=== PATIENT | male | born 1990 | race Caucasian/White ===

== ENCOUNTER 2025-01-12 09:55 | Emergency (ER) | payer MEDICAID ==
[~2025-01-12] VITALS: Ht 175.3 cm; Wt 105.0 kg
[2025-01-12 10:01] VITALS: TEMP 36.9; O2SAT 100
[2025-01-12] MEDS: LIDOCAINE HCL/PF 1% 10 MG/ML 5ML VIAL INFIL ONE (10:45)
[2025-01-12] MEDS: BACITRACIN ZINC OINT UDPKT TOP ONE (10:45)
[2025-01-12 12:07] VITALS: BP 113/82; PULSE 66; RESP 16; O2SAT 100
== END 2025-01-12 12:10 | disposition home or self-care (01) ==
LOC: ER 09:55
DX: S91.202A Unspecified open wound of left great toe with damage to nail, initial encounter (principal); X58.XXXA Exposure to other specified factors, initial encounter; Y93.89 Activity, other specified; Y92.89 Other specified places as the place of occurrence of the external cause; Y99.8 Other external cause status
CPT/HCPCS: 11730; 99284; J2003; Z7610 ×2